=== PATIENT | female | born 1995 | race Caucasian/White ===

== ENCOUNTER → 2022-01-21 | Outpatient (CLI) | payer BC ==
[~2022-01-21] MED LIST: MACRODANTIN100 M1 PO
== END | disposition home or self-care (01) ==
LOC: MAMMO 13:30
PROVIDERS: ATTEND Nurse Practitioner Women's Health
DX: N60.02 Solitary cyst of left breast (principal); N63.22 Unspecified lump in the left breast, upper inner quadrant; N64.9 Disorder of breast, unspecified

== ENCOUNTER → 2024-02-18 | Outpatient (CLI) | payer BC | END | disposition home or self-care (01) | LOC: MAMMO 12:34 | PROVIDERS: ATTEND Nurse Practitioner Women's Health | DX: N60.02 Solitary cyst of left breast (principal) ==

== ENCOUNTER 2024-07-19 22:28 | Emergency (ER) | payer BC ==
[~2024-07-19] VITALS: Ht 160 cm; Wt 74.8 kg
[~2024-07-19 22:28] MED LIST changes: +CIPRO500 MG PO; +MEDI-MECLIZINE25 MG PO
[2024-07-19 23:06] LABS: BASO # 0.1 10*3/uL (0.0-0.1); BASO % 0.5 % (0.0-1.0); EOS # 0.7 10*3/uL (0.0-0.4); MEAN CELL VOLUME 93.2 fl (81.0-99.0); MEAN CORPUSCULAR HGB CONC 33.3 g/dl (33.0-37.0); MEAN PLATELET VOLUME 10.1 fl (9.6-12.3); MONO # 0.6 10*3/uL (0.1-1.0); MONO % 5.6 % (3.0-9.0); NEUT # 4.7 10*3/uL (2.3-7.9); NEUT % 45.4 % (47.0-73.0); PLATELET COUNT AUTOMATED 250 10*3/uL (130-400); RED BLOOD COUNT 4.29 10*6/uL (4.10-5.10); RED CELL DISTRI WIDTH 12.3 % (0-14.5); WHITE BLOOD COUNT 10.3 10*3/uL (4.8-10.8)
[2024-07-19 23:25] LABS: BUN 9 mg/dl (9-23); CHLORIDE 105 mmol/L (98-107); POTASSIUM 3.6 mmol/L (3.4-5.1)
[2024-07-20] MEDS ORDERED: DIAZEPAM 5 MG TAB PO ONE (00:35)
[2024-07-20] MEDS ORDERED: VISTARIL25 MG PO (01:39)
== END 2024-07-20 01:42 | disposition home or self-care (01) ==
LOC: ED 22:28
PROVIDERS: Internal Medicine
DX: F41.9 Anxiety disorder, unspecified (principal); R42 Dizziness and giddiness; R11.2 Nausea with vomiting, unspecified; R25.1 Tremor, unspecified; R06.02 Shortness of breath; Z79.899 Other long term (current) drug therapy; Z79.2 Long term (current) use of antibiotics

== ENCOUNTER 2024-12-31 13:03 | Emergency (ER) | payer BC ==
[~2024-12-31] VITALS: Ht 162.5 cm; Wt 72.6 kg
[~2024-12-31 13:03] MED LIST changes: +VISTARIL25 MG PO
[2024-12-31] MEDS ORDERED: SODIUM CHLORIDE 0.9% 1,000 ML IV ONE (13:25)
[2024-12-31] MEDS ORDERED: Meclizine Hydrochloride 25 MG TAB PO ONE (13:25)
[2024-12-31] MEDS ORDERED: diazePAM 5 MG TAB PO ONE (13:25)
[2024-12-31 13:37] LABS: BASO # 0.1 10*3/uL (0.0-0.1); BASO % 0.7 % (0.0-1.0); EOS # 0.3 10*3/uL (0.0-0.4); EOS % 2.3 % (1.0-4.0); HEMATOCRIT 42.6 % (37.0-47.0); MEAN CELL VOLUME 92.8 fl (81.0-99.0); MEAN CORPUSCULAR HGB 31.2 pg (27.0-31.0); MEAN CORPUSCULAR HGB CONC 33.6 g/dl (33.0-37.0); MEAN PLATELET VOLUME 10.1 fl (9.6-12.3); MONO # 0.7 10*3/uL (0.1-1.0); MONO % 5.9 % (3.0-9.0); NEUT # 7.4 10*3/uL (2.3-7.9); NEUT % 65.5 % (47.0-73.0); PLATELET COUNT AUTOMATED 238 10*3/uL (130-400); RED BLOOD COUNT 4.59 10*6/uL (4.10-5.10); RED CELL DISTRI WIDTH 13.1 % (0-14.5); WHITE BLOOD COUNT 11.3 10*3/uL (4.8-10.8)
[2024-12-31 13:58] LABS: BUN 6 mg/dl (9-23); CHLORIDE 104 mmol/L (98-107); POTASSIUM 3.7 mmol/L (3.4-5.1)
[2024-12-31] MEDS ORDERED: CEPHALEXIN500 M1 PO (14:17)
== END 2024-12-31 14:47 | disposition home or self-care (01) ==
LOC: ED 13:03
PROVIDERS: Emergency Medicine
DX: R42 Dizziness and giddiness (principal); L03.221 Cellulitis of neck; R06.02 Shortness of breath; R21 Rash and other nonspecific skin eruption; R30.9 Painful micturition, unspecified; R35.0 Frequency of micturition; Z88.8 Allergy status to other drugs, medicaments and biological substances